=== PATIENT | male | born 1995 | race Caucasian/White ===

== ENCOUNTER 2016-11-16 18:35 | Emergency (ER) | payer SELFPAY ==
[~2016-11-16] VITALS: Ht 170.2 cm; Wt 55.0 kg
[2016-11-16 18:36] VITALS: BP 140/96; PULSE 62; RESP 20; TEMP 98.8; O2SAT 100
[2016-11-16] MEDS ORDERED: PRED20 PO (20:09)
[2016-11-16] MEDS ORDERED: FAMO20TA2 PO (20:09)
--- NOTE | 2016-11-16 20:20 | PD ---
HPI Chief Complaint: Skin Problem Time Seen by Provider: 19:56 Travel History International Travel<30 days: No Contact w/Intl Traveler<30days: No Traveled to known affect area: No History of Present Illness HPI 21-year-old white male presents to emergency department for evaluation of a rash. He states that he developed a pruritic rash on his arms, legs and neck on the 13th of this month. He states that he went to [facility] and was given prescriptions for prednisone and Pepcid. The patient states that he discontinue the medications 2 days ago. He felt that he was developing side effects which included dizziness, increased sleepiness and general malaise. The patient presents to the ER today for a second opinion. He states that the rash has not resolved. He states that the rash on his arms have improved but the rash on his lower legs has worsened. He is not currently taking any medications. He denies any changes in his apartment. 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 He has had no changes in his skin care products or laundry detergent. He has not been sick recently. He denies any systemic symptoms such as shortness of breath or wheezing. No glossal edema or difficulty swallowing. History Past Medical Histgory Medical History: Denies Significant Hx Tetanus Vaccination: < 5 Years Past Surgical History Surgical History: No Previous Surgery Social History Alcohol Use: Yes (OCCASIONALLY) Tobacco Use: Yes (E-CIG) Allergies-Medications (Allergen,Severity, Reaction): Uncoded Allergies: PENICILLIN (Allergy, Severe, 11/16/16) Reported Meds & Prescriptions Reported Meds & Active Scripts Active Reported Famotidine 20 Mg Tab 20 Mg PO DAILY Prednisone 20 Mg Tab 20 Mg PO TID 40 MG twice a day x 3 days, then 20 MG daily x 3 days, then 10 MG daily x 3 days Review of Systems Except as stated in HPI: all other systems reviewed are Neg Physical Exam Narrative GENERAL: Well-developed, well-nourished in no acute distress. Nontoxic appearing. HEAD: Normocephalic, atraumatic. EYES: Pupils equal round and reactive. Extraocular motions intact. No scleral icterus. No injection or drainage. ENT: TMs clear without erythema. The external auditory canals clear. Nose: clear . Posterior pharynx is pink and moist. No tonsillar edema or exudate. Uvula midline. Airway patent. NECK: Trachea midline.Supple, nontender, moves head freely. No central bony tenderness or spasm. CARDIOVASCULAR: Regular rate and rhythm without murmurs, gallops, or rubs. RESPIRATORY: Clear to auscultation. Breath sounds equal bilaterally. No wheezes , rales, or rhonchi. GASTROINTESTINAL: Abdomen soft, non-tender, nondistended. No hepato-splenomegaly , or palpable masses. No guarding. EXTREMITIES: No clubbing, cyanosis, or edema. No joint tenderness, effusion, or edema noted. BACK: Nontender without deformity or crepitance. No flank tenderness. Skin: Patient has some mild excoriated erythematous raised papular lesions on the lower extremities as well as a few lesions on the upper extremities. This appears to be more the anterior surface of his skin. Patient also has a few lesions on his anterior neck. His palms are spared. There is no lesions on the trunk or back. Data Data Last Documented VS Vital Signs Date Time Temp Pulse Resp B/P (MAP) Pulse Ox O2 Delivery O2 Flow Rate FiO2 11/16/16 18:36 98.8 62 20 140/96 (111) 100 Room Air MDM Medical Screen Exam Complete: Yes Emergency Medical Condition: No Differential Diagnosis MDM: Lo Differential diagnoses: Abscess, folliculitis, cellulitis, lymphangitis, abrasion, contact dermatitis Narrative Course A medical screening exam was performed: At the time of evaluation the presenting medical condition was determined not to be of an emergent nature. The patient was given the option of receiving additional care, but declined. Patient was given options for additional community resources from which to obtain care. The Patient Has Been advised to seek medical attention for their presenting complaint. The patient has been advised to return to the ER at any time if an emergent condition develops. Primary Impression: Encounter for medical screening examination Jeff Whyte Nov 16, 2016 20:20
== END 2016-11-16 20:42 | disposition left against medical advice (07) ==
LOC: NEPD 18:35
DX: R21 Rash and other nonspecific skin eruption (principal)
CPT/HCPCS: 99281